=== PATIENT | female | born 1935 | race Caucasian/White ===

== ENCOUNTER 2017-01-31 15:55 | Outpatient (CLI) | payer BC ==
[~2017-01-31 15:55] MED LIST: IRBE1TAB11 PO; LIP10 PO
== END 2017-01-31 19:21 | disposition home or self-care (01) ==
LOC: SRD 15:55
PROVIDERS: ATTEND Internal Medicine
DX: R06.89 Other abnormalities of breathing (principal); I77.1 Stricture of artery
CPT/HCPCS: 71020-TC

== ENCOUNTER → 2017-02-24 | Outpatient (CLI) | payer BC | END | disposition home or self-care (01) | LOC: SCT 08:42 | PROVIDERS: ATTEND Internal Medicine | DX: I71.4 Abdominal aortic aneurysm, without rupture (principal) | CPT/HCPCS: 71250-TC ==

== ENCOUNTER 2017-07-04 10:34 | Outpatient (CLI) | payer BC | END 2017-07-04 19:31 | disposition home or self-care (01) | LOC: SMA 10:34 | PROVIDERS: ATTEND Internal Medicine | DX: Z12.31 Encounter for screening mammogram for malignant neoplasm of breast (principal) | CPT/HCPCS: G0202 ==

== ENCOUNTER 2020-07-18 18:40 | Inpatient (IN) | payer BC, SELFPAY ==
[~2020-07-18] VITALS: Ht 160 cm; Wt 44.0 kg
[2020-07-18] VITALS (7 sets, daily range): BP systolic 114–187
[~2020-07-18 18:40] MED LIST changes: +ETOMIDATE 20 MG/ 10 ML VIAL (AMIDATE) IVP ONE; +SUCCINYLCHOLINE CHLORIDE 20 MG/ML(QUELICIN) IVP ONE
[2020-07-18] MEDS ORDERED: NACL 0.9% 1,000 ML IV ONE ×2 (19:00→20:30)
[2020-07-18 19:10] LABS: BASOPHILS % (AUTO) 0.6 % (0.0-2.0); EOSINOPHILS # (AUTO) 0.1 K/uL (0.0-0.4); EOSINOPHILS % (AUTO) 0.9 % (0.0-4.0); HEMATOCRIT 34.9 % (36-48); HEMOGLOBIN 11.8 g/dL (12.0-16.0); LYMPHOCYTES # (AUTO) 1.5 K/uL (1.0-5.5); LYMPHOCYTES % (AUTO) 19.4 % (20.5-51.5); MEAN CORPUSCULAR HEMOGLOBIN 32 pg (27-31); MEAN CORPUSCULAR HGB CONC 34 % (32-36); MEAN CORPUSCULAR VOLUME 93 fL (79.0-98.0); MONOCYTES # (AUTO) 0.7 K/uL (0.0-1.0); MONOCYTES % (AUTO) 8.9 % (1.7-9.3); NEUTROPHILS # (AUTO) 5.4 K/uL (1.8-7.7); NEUTROPHILS % (AUTO) 70.2 % (40.0-70.0); PLATELET COUNT (AUTO) 336 K/uL (130-430); RED BLOOD CELL COUNT(AUTO) 3.75 MIL/uL (4.2-6.2); RED CELL DISTRIBUTION WIDTH 12.6 % (9.0-15.0); WHITE BLOOD COUNT (AUTO) 7.7 K/uL (4.8-10.8)
[2020-07-18 19:13] LABS: ANION GAP 10 (5-15); CALCIUM 8.2 mg/dL (8.4-11.0); CHLORIDE 102 mmol/L (98-107); CREATININE 0.49 mg/dL (0.55-1.30); GLUCOSE 103 mg/dL (70-99); POTASSIUM 3.7 mmol/L (3.5-5.1); SODIUM SERUM 136 mmol/L (136-145); UREA NITROGEN, BLOOD 14 mg/dL (8-21)
[2020-07-18] MEDS ORDERED: ETOMIDATE 20 MG/ 10 ML VIAL (AMIDATE) IVP ONE (19:15)
[2020-07-18] MEDS ORDERED: PROPOFOL DRIP 100 ML IV ONE (19:15)
[2020-07-18 19:19] LABS: ALANINE AMINOTRANSFERASE 22 U/L (12-78); ALBUMIN 3.5 g/dL (3.4-4.8); ASPARTATE AMINOTRANSFERASE 17 U/L (10-37); TOTAL BILIRUBIN 0.6 mg/dL (0.0-1.0)
[2020-07-18 19:19] LABS: BILIRUBIN,URINE NEGATIVE (NEGATIVE); BLOOD, URINE 1+ (NEGATIVE); CLARITY/URINE SL CLOUDY (CLEAR); COLOR,URINE YELLOW (YELLOW); GLUCOSE,URINE NEGATIVE (NEGATIVE); KETONES,URINE 1+ (NEGATIVE); LEUKOCYTE ESTERASE ,URINE NEGATIVE (NEGATIVE); NITRITE, URINE NEGATIVE (NEGATIVE); PROTEIN URINE NEGATIVE (NEGATIVE); UROBILINOGEN,URINE 0.2 (0.2-1.0)
[2020-07-18 19:29] LABS: BACTERIA,URINE FEW /HPF (None Seen); WBC,URINE 0-3 /HPF (0-3)
[2020-07-18 19:30] LABS: MUCUS,URINE None Seen /LPF (None Seen)
[2020-07-18] MEDS ORDERED: SUCCINYLCHOLINE CHLORIDE 20 MG/ML(QUELICIN) IVP ONE (19:30)
[2020-07-18] MEDS ORDERED: MIDAZOLAM HCL 5 MG/5 ML VIAL ONE (19:56)
[2020-07-18] MEDS ORDERED: LOSA100T3 PO (20:09)
[2020-07-18] MEDS ORDERED: AMLO5TAB4 PO (20:09)
[2020-07-18] MEDS ORDERED: cefTRIAXone 1 GM IVPB PREMIX 50 ML IV ONE (20:30)
[2020-07-18] MEDS ORDERED: CELE100C PO (20:45)
[2020-07-18] MEDS ORDERED: hydrALAZINE HCL 20 MG/ML VIAL IVP ONE (21:15)
[2020-07-18 21:17] LABS: ACETAMINOPHEN < 1 ug/mL (1-30); ALCOHOL, BLOOD < 3 mg/dL (<10)
[2020-07-18] MEDS ORDERED: IPRATROPIUM/ALBUTEROL SULFATE 3 ML AMPUL.NEB (DUONEB) INH PRN (21:45)
[2020-07-18] MEDS: D5LR 1,000 ML IV SCH (22:48)
[2020-07-18] MEDS: PANTOPRAZOLE SODIUM 40 MG/VIAL (PROTONIX) IVP SCH (22:48)
[2020-07-18] MEDS ORDERED: PANTOPRAZOLE SODIUM 40 MG/VIAL (PROTONIX) ONE (22:49)
[2020-07-18] MEDS ORDERED: PIPERACILLIN/TAZOBACTAM 3.375 GM/VIAL (ZOSYN) IV ONE (23:01)
[2020-07-18] MEDS: PIPERACILLIN/TAZO 3.375/DEX-IS 50 ML IV SCH (23:46)
[2020-07-19] VITALS (34 sets, daily range): BP systolic 80–163
[2020-07-19] MEDS ORDERED: FLU VACC QS2020-21(65UP)/PF 0.7 ML/SYRINGE I.M. PRN (05:30)
[2020-07-19] MEDS: PIPERACILLIN/TAZO 3.375/DEX-IS 50 ML IV SCH ×3 (06:23→18:41)
[2020-07-19 06:45] LABS: BASOPHILS # (AUTO) 0.1 K/uL (0.0-0.2); BASOPHILS % (AUTO) 0.8 % (0.0-2.0); EOSINOPHILS # (AUTO) 0.1 K/uL (0.0-0.4); EOSINOPHILS % (AUTO) 0.8 % (0.0-4.0); HEMATOCRIT 32.5 % (36-48); HEMOGLOBIN 11.3 g/dL (12.0-16.0); LYMPHOCYTES # (AUTO) 1.2 K/uL (1.0-5.5); LYMPHOCYTES % (AUTO) 12.8 % (20.5-51.5); MEAN CORPUSCULAR HEMOGLOBIN 33 pg (27-31); MEAN CORPUSCULAR HGB CONC 35 % (32-36); MEAN CORPUSCULAR VOLUME 94 fL (79.0-98.0); MONOCYTES # (AUTO) 0.8 K/uL (0.0-1.0); MONOCYTES % (AUTO) 7.9 % (1.7-9.3); NEUTROPHILS # (AUTO) 7.5 K/uL (1.8-7.7); NEUTROPHILS % (AUTO) 77.7 % (40.0-70.0); PLATELET COUNT (AUTO) 324 K/uL (130-430); RED BLOOD CELL COUNT(AUTO) 3.47 MIL/uL (4.2-6.2); RED CELL DISTRIBUTION WIDTH 12.9 % (9.0-15.0); WHITE BLOOD COUNT (AUTO) 9.6 K/uL (4.8-10.8)
[2020-07-19 07:15] LABS: ALANINE AMINOTRANSFERASE 20 U/L (12-78); ANION GAP 11 (5-15); ASPARTATE AMINOTRANSFERASE 22 U/L (10-37); CALCIUM 7.5 mg/dL (8.4-11.0); CHLORIDE 105 mmol/L (98-107); CREATININE 0.51 mg/dL (0.55-1.30); GLUCOSE 153 mg/dL (70-99); LIPASE 142 U/L (73-393); PHOSPHORUS 2.6 mg/dL (2.7-4.5); POTASSIUM 3.1 mmol/L (3.5-5.1); SODIUM SERUM 139 mmol/L (136-145); TOTAL BILIRUBIN 0.4 mg/dL (0.0-1.0); UREA NITROGEN, BLOOD 13 mg/dL (8-21)
[2020-07-19 07:30] LABS: PROTHROMBIN TIME 9.9 SECS (9.5-12.5)
[2020-07-19] MEDS: D5LR 1,000 ML IV SCH ×2 (08:59→18:41)
[2020-07-19] MEDS: PANTOPRAZOLE SODIUM 40 MG/VIAL (PROTONIX) IVP SCH ×2 (09:00→20:53)
[2020-07-19] MEDS ORDERED: PANTOPRAZOLE SODIUM 40 MG/VIAL (PROTONIX) IVP SCH (09:00)
[2020-07-19 11:40] LABS: BARBITURATE, URINE NEGATIVE (NEG <=200); BENZODIAZEPINE, URINE NEGATIVE (NEG <=150); CANNABINOID, URINE POSITIVE (NEG <=50); COCAINE, URINE NEGATIVE (NEG <=150); METHAMPHETAMINES SCREEN,URINE NEGATIVE (NEG <=500); OPIATE, URINE NEGATIVE (NEG <=100); PHENCYCLIDINE SCREEN,URINE NEGATIVE (NEG <=25); UR TRICYCLIC ANTIDEPRESSANTS NEGATIVE (NEG <=300); URINE AMPHETAMINE NEGATIVE (NEG <=500); URINE METHADONE NEGATIVE (NEG <=200); URINE OXYCODONE SCREEN NEGATIVE (NEG <=100); URINE PROPOXYPHENE SCREEN NEGATIVE (NEG <=300)
[2020-07-19] MEDS ORDERED: KCL 40 mEq in D5W 1000 mL 1,000 ML IV SCH (13:00)
[2020-07-19] MEDS: PROPOFOL DRIP 100 ML IV PRN (13:20)
[2020-07-19] MEDS ORDERED: POTASSIUM CHLORIDE 40 MEQ in NS 250 ML IV ONE (14:00)
[2020-07-19] MEDS ORDERED: POTASSIUM CHLORIDE 20 MEQ/PKT PACKET NG ONE (16:15)
[2020-07-19] MEDS ORDERED: NALOXONE HCL 0.4 MG/ML AMP (NARCAN) IVP PRN (19:15)
[2020-07-19] MEDS ORDERED: MIDAZOLAM HCL IN 0.9 % NACL/PF 50 ML IV PRN (19:15)
[2020-07-19] MEDS ORDERED: MORPHINE I.V. DRIP 100 ML IV PRN (19:15)
[2020-07-19] MEDS ORDERED: MORPHINE SULFATE 10 MG/ML VIAL ONE (19:52)
[2020-07-19] MEDS: HEPARIN SODIUM,PORCINE 5,000 UNITS/ML VIAL SUBCUT SCH (20:54)
[2020-07-19] MEDS: POTASSIUM CHLORIDE 20 MEQ/PKT PACKET NG SCH (20:54)
[2020-07-20] VITALS (36 sets, daily range): BP systolic 95–159
[2020-07-20] MEDS: PROPOFOL DRIP 100 ML IV PRN ×2 (00:09→17:26)
[2020-07-20] MEDS: PIPERACILLIN/TAZO 3.375/DEX-IS 50 ML IV SCH ×4 (00:10→17:25)
[2020-07-20] MEDS: D5LR 1,000 ML IV SCH ×2 (05:15→13:40)
[2020-07-20 06:37] LABS: BASOPHILS # (AUTO) 0.1 K/uL (0.0-0.2); BASOPHILS % (AUTO) 1.3 % (0.0-2.0); EOSINOPHILS # (AUTO) 0.3 K/uL (0.0-0.4); EOSINOPHILS % (AUTO) 3.2 % (0.0-4.0); HEMATOCRIT 28.3 % (36-48); HEMOGLOBIN 9.5 g/dL (12.0-16.0); LYMPHOCYTES # (AUTO) 1.7 K/uL (1.0-5.5); LYMPHOCYTES % (AUTO) 21.9 % (20.5-51.5); MEAN CORPUSCULAR HEMOGLOBIN 32 pg (27-31); MEAN CORPUSCULAR HGB CONC 34 % (32-36); MEAN CORPUSCULAR VOLUME 95 fL (79.0-98.0); MONOCYTES # (AUTO) 0.7 K/uL (0.0-1.0); MONOCYTES % (AUTO) 8.7 % (1.7-9.3); NEUTROPHILS # (AUTO) 5.2 K/uL (1.8-7.7); NEUTROPHILS % (AUTO) 64.9 % (40.0-70.0); PLATELET COUNT (AUTO) 237 K/uL (130-430); RED BLOOD CELL COUNT(AUTO) 2.99 MIL/uL (4.2-6.2); RED CELL DISTRIBUTION WIDTH 12.8 % (9.0-15.0)
[2020-07-20] MEDS ORDERED: PHENYLEPHRINE HCL 50 MG in NS 245 ML IV PRN (06:45)
[2020-07-20] MEDS ORDERED: NACL 0.9% 1,000 ML IV ONE (06:45)
[2020-07-20 07:14] LABS: ALANINE AMINOTRANSFERASE 18 U/L (12-78); ALBUMIN 2.4 g/dL (3.4-4.8); ANION GAP 5 (5-15); ASPARTATE AMINOTRANSFERASE 21 U/L (10-37); CALCIUM 7.3 mg/dL (8.4-11.0); CHLORIDE 112 mmol/L (98-107); CREATININE 0.43 mg/dL (0.55-1.30); GLUCOSE 128 mg/dL (70-99); POTASSIUM 3.7 mmol/L (3.5-5.1); SODIUM SERUM 143 mmol/L (136-145); THYROID STIMULATING HORMONE 1.06 uIu/mL (0.36-3.74); TOTAL BILIRUBIN 0.3 mg/dL (0.0-1.0); UREA NITROGEN, BLOOD 11 mg/dL (8-21)
[2020-07-20] MEDS: PANTOPRAZOLE SODIUM 40 MG/VIAL (PROTONIX) IVP SCH ×2 (08:17→20:41)
[2020-07-20] MEDS: POTASSIUM CHLORIDE 20 MEQ/PKT PACKET NG SCH ×2 (08:18→20:44)
[2020-07-20] MEDS: HEPARIN SODIUM,PORCINE 5,000 UNITS/ML VIAL SUBCUT SCH ×2 (08:19→20:50)
[2020-07-20 08:27] LABS: CHOLESTEROL 174 mg/dL (<200); HDL CHOLESTEROL 59 mg/dL (>55); LDL CHOLESTEROL 94 mg/dL (<100); TRIGLYCERIDES 109 mg/dL (30-150)
[2020-07-20] MEDS ORDERED: NAPH,MB-DB/K PH,MBDB 250 MG TAB NG ONE (19:45)
[2020-07-20] MEDS: CHOLECALCIFEROL (VITAMIN D3) 2,000 UNIT TABLET PO SCH (20:47)
[2020-07-20] MEDS ORDERED: CHOLECALCIFEROL (VITAMIN D-3) 400 UNIT TABLET ONE (20:56)
[2020-07-20] MEDS ORDERED: NAPH,MB-DB/K PH,MBDB 250 MG TAB PO SCH (21:00)
[2020-07-21] VITALS (27 sets, daily range): BP systolic 119–202
[2020-07-21] MEDS: PIPERACILLIN/TAZO 3.375/DEX-IS 50 ML IV SCH ×4 (00:30→18:01)
[2020-07-21] MEDS: hydrALAZINE HCL 20 MG/ML VIAL IVP PRN ×3 (02:07→15:47)
[2020-07-21] MEDS: D5LR 1,000 ML IV SCH ×2 (05:32→22:47)
[2020-07-21 06:05] LABS: BASOPHILS # (AUTO) 0.1 K/uL (0.0-0.2); BASOPHILS % (AUTO) 0.9 % (0.0-2.0); EOSINOPHILS # (AUTO) 0.3 K/uL (0.0-0.4); EOSINOPHILS % (AUTO) 2.9 % (0.0-4.0); HEMATOCRIT 32.1 % (36-48); HEMOGLOBIN 10.6 g/dL (12.0-16.0); LYMPHOCYTES % (AUTO) 18.2 % (20.5-51.5); MEAN CORPUSCULAR HEMOGLOBIN 31 pg (27-31); MEAN CORPUSCULAR HGB CONC 33 % (32-36); MEAN CORPUSCULAR VOLUME 94 fL (79.0-98.0); MONOCYTES # (AUTO) 0.9 K/uL (0.0-1.0); MONOCYTES % (AUTO) 8.7 % (1.7-9.3); NEUTROPHILS # (AUTO) 7.5 K/uL (1.8-7.7); NEUTROPHILS % (AUTO) 69.3 % (40.0-70.0); PLATELET COUNT (AUTO) 270 K/uL (130-430); RED CELL DISTRIBUTION WIDTH 12.8 % (9.0-15.0); WHITE BLOOD COUNT (AUTO) 10.8 K/uL (4.8-10.8)
[2020-07-21 06:42] LABS: ANION GAP 4 (5-15); CALCIUM 8.1 mg/dL (8.4-11.0); CHLORIDE 103 mmol/L (98-107); CREATININE 0.45 mg/dL (0.55-1.30); GLUCOSE 132 mg/dL (70-99); PHOSPHORUS 2.7 mg/dL (2.7-4.5); POTASSIUM 3.7 mmol/L (3.5-5.1); SODIUM SERUM 134 mmol/L (136-145); UREA NITROGEN, BLOOD 9 mg/dL (8-21)
[2020-07-21] MEDS: NAPH,MB-DB/K PH,MBDB 250 MG TAB PO SCH ×4 (09:14→21:46)
[2020-07-21] MEDS: MULTIVITS,CA,MINERALS/IRON/FA 1 TABLET GT SCH (09:14)
[2020-07-21] MEDS: POTASSIUM CHLORIDE 20 MEQ/PKT PACKET NG SCH ×2 (09:14→21:46)
[2020-07-21] MEDS: CHOLECALCIFEROL (VITAMIN D3) 2,000 UNIT TABLET PO SCH (09:14)
[2020-07-21] MEDS: PANTOPRAZOLE SODIUM 40 MG/VIAL (PROTONIX) IVP SCH ×2 (09:14→21:46)
[2020-07-21] MEDS: HEPARIN SODIUM,PORCINE 5,000 UNITS/ML VIAL SUBCUT SCH ×2 (09:16→21:48)
[2020-07-21] MEDS ORDERED: DILTIAZEM HCL 25 MG/5 ML VIAL IVP ONE (12:00)
[2020-07-21] MEDS ORDERED: METOPROLOL TARTRATE 5 MG/5 ML VIAL IVP ONE (13:00)
[2020-07-21] MEDS ORDERED: METOPROLOL TARTRATE 25 MG TABLET PO ONE (17:15)
[2020-07-21] MEDS: METOPROLOL TARTRATE 25 MG TABLET PO SCH (21:47)
[2020-07-22] VITALS (20 sets, daily range): BP systolic 136–172
[2020-07-22] MEDS: PIPERACILLIN/TAZO 3.375/DEX-IS 50 ML IV SCH ×4 (00:16→17:49)
[2020-07-22] MEDS: hydrALAZINE HCL 20 MG/ML VIAL IVP PRN (00:35)
[2020-07-22 05:26] LABS: BASOPHILS # (AUTO) 0.1 K/uL (0.0-0.2); LYMPHOCYTES # (AUTO) 1.3 K/uL (1.0-5.5); RED CELL DISTRIBUTION WIDTH 12.7 % (9.0-15.0)
[2020-07-22 05:33] LABS: INR 0.9 (0.8-1.2); PROTHROMBIN TIME 9.6 SECS (9.5-12.5)
[2020-07-22 05:39] LABS: ALANINE AMINOTRANSFERASE 19 U/L (12-78); ALBUMIN 2.8 g/dL (3.4-4.8); ANION GAP 9 (5-15); ASPARTATE AMINOTRANSFERASE 20 U/L (10-37); CALCIUM 8.5 mg/dL (8.4-11.0); CHLORIDE 96 mmol/L (98-107); GLUCOSE 119 mg/dL (70-99); POTASSIUM 3.2 mmol/L (3.5-5.1); SODIUM SERUM 132 mmol/L (136-145); TOTAL BILIRUBIN 0.6 mg/dL (0.0-1.0); UREA NITROGEN, BLOOD 7 mg/dL (8-21)
[2020-07-22 05:41] LABS: BASOPHILS % (AUTO) 0.7 % (0.0-2.0); EOSINOPHILS # (AUTO) 0.1 K/uL (0.0-0.4); EOSINOPHILS % (AUTO) 0.6 % (0.0-4.0); HEMATOCRIT 34.7 % (36-48); HEMOGLOBIN 11.5 g/dL (12.0-16.0); LYMPHOCYTES % (AUTO) 9.9 % (20.5-51.5); MEAN CORPUSCULAR HEMOGLOBIN 31 pg (27-31); MEAN CORPUSCULAR HGB CONC 33 % (32-36); MEAN CORPUSCULAR VOLUME 94 fL (79.0-98.0); MONOCYTES # (AUTO) 0.9 K/uL (0.0-1.0); MONOCYTES % (AUTO) 6.3 % (1.7-9.3); NEUTROPHILS # (AUTO) 11.2 K/uL (1.8-7.7); NEUTROPHILS % (AUTO) 82.5 % (40.0-70.0); PLATELET COUNT (AUTO) 295 K/uL (130-430); WHITE BLOOD COUNT (AUTO) 13.5 K/uL (4.8-10.8)
[2020-07-22] MEDS ORDERED: POTASSIUM CHLORIDE 20 MEQ/PKT PACKET PO ONE (08:00)
[2020-07-22] MEDS: PANTOPRAZOLE SODIUM 40 MG/VIAL (PROTONIX) IVP SCH ×2 (08:36→20:59)
[2020-07-22] MEDS: HEPARIN SODIUM,PORCINE 5,000 UNITS/ML VIAL SUBCUT SCH ×2 (08:38→21:04)
[2020-07-22] MEDS: MULTIVITS,CA,MINERALS/IRON/FA 1 TABLET GT SCH (08:38)
[2020-07-22] MEDS: NAPH,MB-DB/K PH,MBDB 250 MG TAB PO SCH ×4 (08:38→21:00)
[2020-07-22] MEDS: METOPROLOL TARTRATE 25 MG TABLET PO SCH (08:39)
[2020-07-22] MEDS: POTASSIUM CHLORIDE 20 MEQ/PKT PACKET NG SCH ×2 (08:39→21:00)
[2020-07-22] MEDS: CHOLECALCIFEROL (VITAMIN D3) 2,000 UNIT TABLET PO SCH (08:40)
[2020-07-22] MEDS: D5LR 1,000 ML IV SCH (12:20)
[2020-07-22] MEDS: METOPROLOL TARTRATE 50 MG TABLET PO SCH (21:00)
[2020-07-23] VITALS: BP_SYST 165
[2020-07-23] MEDS: PIPERACILLIN/TAZO 3.375/DEX-IS 50 ML IV SCH ×3 (00:08→12:26)
[2020-07-23 00:30] VITALS: BP_SYST 155
[2020-07-23] MEDS: D5LR 1,000 ML IV SCH (03:21)
[2020-07-23 06:12] LABS: BASOPHILS # (AUTO) 0.1 K/uL (0.0-0.2); BASOPHILS % (AUTO) 0.5 % (0.0-2.0); EOSINOPHILS # (AUTO) 0.2 K/uL (0.0-0.4); EOSINOPHILS % (AUTO) 1.7 % (0.0-4.0); HEMATOCRIT 35.4 % (36-48); LYMPHOCYTES # (AUTO) 1.3 K/uL (1.0-5.5); LYMPHOCYTES % (AUTO) 13.7 % (20.5-51.5); MEAN CORPUSCULAR HEMOGLOBIN 31 pg (27-31); MEAN CORPUSCULAR HGB CONC 34 % (32-36); MEAN CORPUSCULAR VOLUME 93 fL (79.0-98.0); MONOCYTES # (AUTO) 0.8 K/uL (0.0-1.0); MONOCYTES % (AUTO) 8.4 % (1.7-9.3); NEUTROPHILS # (AUTO) 7.1 K/uL (1.8-7.7); NEUTROPHILS % (AUTO) 75.7 % (40.0-70.0); PLATELET COUNT (AUTO) 300 K/uL (130-430); RED BLOOD CELL COUNT(AUTO) 3.83 MIL/uL (4.2-6.2); RED CELL DISTRIBUTION WIDTH 12.3 % (9.0-15.0); WHITE BLOOD COUNT (AUTO) 9.3 K/uL (4.8-10.8)
[2020-07-23 06:59] LABS: ANION GAP 5 (5-15); CALCIUM 8.5 mg/dL (8.4-11.0); CHLORIDE 95 mmol/L (98-107); CREATININE 0.38 mg/dL (0.55-1.30); GLUCOSE 157 mg/dL (70-99); POTASSIUM 3.2 mmol/L (3.5-5.1); SODIUM SERUM 127 mmol/L (136-145); UREA NITROGEN, BLOOD 9 mg/dL (8-21)
[2020-07-23 08:10] VITALS: BP_SYST 135
[2020-07-23] MEDS: PANTOPRAZOLE SODIUM 40 MG/VIAL (PROTONIX) IVP SCH (08:48)
[2020-07-23] MEDS: POTASSIUM CHLORIDE 20 MEQ/PKT PACKET NG SCH ×2 (08:48→20:51)
[2020-07-23] MEDS: MULTIVITS,CA,MINERALS/IRON/FA 1 TABLET GT SCH (08:48)
[2020-07-23] MEDS: METOPROLOL TARTRATE 50 MG TABLET PO SCH ×2 (08:49→20:51)
[2020-07-23] MEDS: CHOLECALCIFEROL (VITAMIN D3) 2,000 UNIT TABLET PO SCH (08:49)
[2020-07-23] MEDS: HEPARIN SODIUM,PORCINE 5,000 UNITS/ML VIAL SUBCUT SCH ×2 (08:51→20:52)
[2020-07-23] MEDS: NAPH,MB-DB/K PH,MBDB 250 MG TAB PO SCH ×4 (09:43→20:51)
[2020-07-23 12:09] VITALS: BP_SYST 132
[2020-07-23] MEDS ORDERED: POTASSIUM CHLORIDE 20 MEQ TAB.PRT.SR PO ONE (14:00)
[2020-07-23 16:13] VITALS: BP_SYST 135
[2020-07-23 20:00] VITALS: BP_SYST 119
[2020-07-24 00:16] VITALS: BP_SYST 120
[2020-07-24 06:21] LABS: BASOPHILS # (AUTO) 0.1 K/uL (0.0-0.2); EOSINOPHILS # (AUTO) 0.1 K/uL (0.0-0.4); EOSINOPHILS % (AUTO) 1.5 % (0.0-4.0); HEMATOCRIT 35.2 % (36-48); HEMOGLOBIN 11.9 g/dL (12.0-16.0); LYMPHOCYTES # (AUTO) 1.7 K/uL (1.0-5.5); LYMPHOCYTES % (AUTO) 17.4 % (20.5-51.5); MEAN CORPUSCULAR HEMOGLOBIN 32 pg (27-31); MEAN CORPUSCULAR HGB CONC 34 % (32-36); MEAN CORPUSCULAR VOLUME 93 fL (79.0-98.0); MONOCYTES # (AUTO) 0.7 K/uL (0.0-1.0); MONOCYTES % (AUTO) 7.6 % (1.7-9.3); NEUTROPHILS # (AUTO) 7.1 K/uL (1.8-7.7); NEUTROPHILS % (AUTO) 72.5 % (40.0-70.0); PLATELET COUNT (AUTO) 308 K/uL (130-430); RED BLOOD CELL COUNT(AUTO) 3.79 MIL/uL (4.2-6.2); RED CELL DISTRIBUTION WIDTH 12.6 % (9.0-15.0); WHITE BLOOD COUNT (AUTO) 9.7 K/uL (4.8-10.8)
[2020-07-24 06:52] LABS: ALANINE AMINOTRANSFERASE 47 U/L (12-78); ALBUMIN 2.9 g/dL (3.4-4.8); ANION GAP 6 (5-15); ASPARTATE AMINOTRANSFERASE 36 U/L (10-37); CALCIUM 8.4 mg/dL (8.4-11.0); CHLORIDE 101 mmol/L (98-107); CREATININE 0.54 mg/dL (0.55-1.30); GLUCOSE 144 mg/dL (70-99); PHOSPHORUS 2.9 mg/dL (2.7-4.5); POTASSIUM 4.2 mmol/L (3.5-5.1); SODIUM SERUM 135 mmol/L (136-145); TOTAL BILIRUBIN 0.3 mg/dL (0.0-1.0); UREA NITROGEN, BLOOD 29 mg/dL (8-21)
[2020-07-24 08:00] VITALS: BP_SYST 130
[2020-07-24] MEDS: CHOLECALCIFEROL (VITAMIN D3) 2,000 UNIT TABLET PO SCH (08:33)
[2020-07-24] MEDS: MULTIVITS,CA,MINERALS/IRON/FA 1 TABLET GT SCH (08:33)
[2020-07-24] MEDS: NAPH,MB-DB/K PH,MBDB 250 MG TAB PO SCH ×4 (08:33→21:05)
[2020-07-24] MEDS: PANTOPRAZOLE SODIUM 40 MG TAB PO SCH (08:34)
[2020-07-24] MEDS: POTASSIUM CHLORIDE 20 MEQ/PKT PACKET NG SCH ×2 (08:34→21:06)
[2020-07-24] MEDS: METOPROLOL TARTRATE 50 MG TABLET PO SCH ×2 (08:34→21:06)
[2020-07-24] MEDS: HEPARIN SODIUM,PORCINE 5,000 UNITS/ML VIAL SUBCUT SCH ×2 (08:35→21:08)
[2020-07-24 11:35] VITALS: BP_SYST 130
[2020-07-24 12:13] VITALS: BP_SYST 156
[2020-07-24 16:30] VITALS: BP_SYST 140
[2020-07-24 20:15] VITALS: BP_SYST 147
[2020-07-25] VITALS: BP_SYST 151
[2020-07-25] MEDS: POTASSIUM CHLORIDE 20 MEQ/PKT PACKET NG SCH (08:36)
[2020-07-25] MEDS: CHOLECALCIFEROL (VITAMIN D3) 2,000 UNIT TABLET PO SCH (08:36)
[2020-07-25] MEDS: PANTOPRAZOLE SODIUM 40 MG TAB PO SCH (08:36)
[2020-07-25] MEDS: NAPH,MB-DB/K PH,MBDB 250 MG TAB PO SCH ×4 (08:36→20:50)
[2020-07-25] MEDS: MULTIVITS,CA,MINERALS/IRON/FA 1 TABLET GT SCH (08:36)
[2020-07-25] MEDS: METOPROLOL TARTRATE 50 MG TABLET PO SCH ×2 (08:37→20:54)
[2020-07-25 08:40] VITALS: BP_SYST 143
[2020-07-25] MEDS: HEPARIN SODIUM,PORCINE 5,000 UNITS/ML VIAL SUBCUT SCH (08:40)
[2020-07-25 12:00] VITALS: BP_SYST 159
[2020-07-25 16:00] VITALS: BP_SYST 158; BP_SYST 168
[2020-07-25] MEDS ORDERED: cloNIDine HCL 0.1 MG TABLET PO PRN (18:00)
[2020-07-25] MEDS ORDERED: cloNIDine HCL 0.1 MG TABLET ONE (18:33)
[2020-07-25] MEDS: CARVEDILOL 6.25 MG TABLET (COREG) PO SCH (20:53)
[2020-07-26 01:29] VITALS: BP_SYST 131
[2020-07-26 07:56] VITALS: BP_SYST 163
[2020-07-26] MEDS: NAPH,MB-DB/K PH,MBDB 250 MG TAB PO SCH ×4 (08:57→20:20)
[2020-07-26] MEDS: CHOLECALCIFEROL (VITAMIN D3) 2,000 UNIT TABLET PO SCH (08:58)
[2020-07-26] MEDS: MULTIVITS,CA,MINERALS/IRON/FA 1 TABLET GT SCH (08:58)
[2020-07-26] MEDS: CARVEDILOL 6.25 MG TABLET (COREG) PO SCH ×2 (08:58→20:22)
[2020-07-26] MEDS: PANTOPRAZOLE SODIUM 40 MG TAB PO SCH (08:58)
[2020-07-26] MEDS: METOPROLOL TARTRATE 50 MG TABLET PO SCH ×2 (08:59→20:20)
[2020-07-26 12:10] VITALS: BP_SYST 151
[2020-07-26 16:12] VITALS: BP_SYST 121
[2020-07-26 20:00] VITALS: BP_SYST 130
[2020-07-26] MEDS ORDERED: AMLO5TAB4 PO (21:25)
[2020-07-26] MEDS ORDERED: METO-442 PO (21:25)
[2020-07-26] MEDS ORDERED: PRO40 PO (21:25)
[2020-07-26] MEDS ORDERED: MULT-33 GT (21:25)
[2020-07-27 01:07] VITALS: BP_SYST 131
[2020-07-27 06:45] LABS: BASOPHILS # (AUTO) 0.1 K/uL (0.0-0.2); BASOPHILS % (AUTO) 0.4 % (0.0-2.0); EOSINOPHILS # (AUTO) 0.3 K/uL (0.0-0.4); EOSINOPHILS % (AUTO) 2.4 % (0.0-4.0); HEMATOCRIT 32.1 % (36-48); HEMOGLOBIN 10.6 g/dL (12.0-16.0); LYMPHOCYTES % (AUTO) 8.3 % (20.5-51.5); MEAN CORPUSCULAR HEMOGLOBIN 31 pg (27-31); MEAN CORPUSCULAR HGB CONC 33 % (32-36); MEAN CORPUSCULAR VOLUME 94 fL (79.0-98.0); MONOCYTES # (AUTO) 1.1 K/uL (0.0-1.0); MONOCYTES % (AUTO) 9.1 % (1.7-9.3); NEUTROPHILS % (AUTO) 79.8 % (40.0-70.0); PLATELET COUNT (AUTO) 210 K/uL (130-430); RED BLOOD CELL COUNT(AUTO) 3.42 MIL/uL (4.2-6.2); RED CELL DISTRIBUTION WIDTH 12.7 % (9.0-15.0); WHITE BLOOD COUNT (AUTO) 12.5 K/uL (4.8-10.8)
[2020-07-27 07:12] LABS: ALANINE AMINOTRANSFERASE 49 U/L (12-78); ALBUMIN 2.9 g/dL (3.4-4.8); ANION GAP 5 (5-15); ASPARTATE AMINOTRANSFERASE 23 U/L (10-37); CALCIUM 9.1 mg/dL (8.4-11.0); CHLORIDE 100 mmol/L (98-107); CREATININE 0.77 mg/dL (0.55-1.30); GLUCOSE 141 mg/dL (70-99); PHOSPHORUS 5.8 mg/dL (2.7-4.5); POTASSIUM 3.7 mmol/L (3.5-5.1); SODIUM SERUM 136 mmol/L (136-145); TOTAL BILIRUBIN 0.2 mg/dL (0.0-1.0); UREA NITROGEN, BLOOD 48 mg/dL (8-21)
[2020-07-27] MEDS: METOPROLOL TARTRATE 50 MG TABLET PO SCH ×2 (08:49→20:34)
[2020-07-27] MEDS: amLODIPine BESYLATE 5 MG TABLET PO SCH (08:49)
[2020-07-27] MEDS: PANTOPRAZOLE SODIUM 40 MG TAB PO SCH (08:49)
[2020-07-27] MEDS: CHOLECALCIFEROL (VITAMIN D3) 2,000 UNIT TABLET PO SCH (08:50)
[2020-07-27] MEDS: MULTIVITS,CA,MINERALS/IRON/FA 1 TABLET GT SCH (08:50)
[2020-07-27 11:18] VITALS: BP_SYST 171
[2020-07-27 12:05] VITALS: BP_SYST 129
[2020-07-27] MEDS ORDERED: LR 500 ML IV ONE (15:45)
[2020-07-27] MEDS ORDERED: MEGESTROL ACETATE 400 MG/10 ML UDC PO ONE (16:00)
[2020-07-27 16:03] VITALS: BP_SYST 141
[2020-07-27 20:00] VITALS: BP_SYST 134
[2020-07-28 00:54] VITALS: BP_SYST 130
[2020-07-28 06:36] LABS: BASOPHILS % (AUTO) 0.3 % (0.0-2.0); EOSINOPHILS # (AUTO) 0.3 K/uL (0.0-0.4); EOSINOPHILS % (AUTO) 2.4 % (0.0-4.0); HEMATOCRIT 32.9 % (36-48); HEMOGLOBIN 10.9 g/dL (12.0-16.0); LYMPHOCYTES # (AUTO) 1.6 K/uL (1.0-5.5); LYMPHOCYTES % (AUTO) 12.6 % (20.5-51.5); MEAN CORPUSCULAR HEMOGLOBIN 31 pg (27-31); MEAN CORPUSCULAR HGB CONC 33 % (32-36); MEAN CORPUSCULAR VOLUME 93 fL (79.0-98.0); MONOCYTES # (AUTO) 1.1 K/uL (0.0-1.0); MONOCYTES % (AUTO) 8.4 % (1.7-9.3); NEUTROPHILS # (AUTO) 9.8 K/uL (1.8-7.7); NEUTROPHILS % (AUTO) 76.3 % (40.0-70.0); PLATELET COUNT (AUTO) 180 K/uL (130-430); RED BLOOD CELL COUNT(AUTO) 3.53 MIL/uL (4.2-6.2); RED CELL DISTRIBUTION WIDTH 12.7 % (9.0-15.0); WHITE BLOOD COUNT (AUTO) 12.8 K/uL (4.8-10.8)
[2020-07-28 06:41] LABS: ANION GAP 7 (5-15); CALCIUM 9.1 mg/dL (8.4-11.0); CHLORIDE 97 mmol/L (98-107); CREATININE 0.72 mg/dL (0.55-1.30); GLUCOSE 137 mg/dL (70-99); POTASSIUM 3.5 mmol/L (3.5-5.1); SODIUM SERUM 135 mmol/L (136-145); UREA NITROGEN, BLOOD 48 mg/dL (8-21)
[2020-07-28 08:00] VITALS: BP_SYST 135
[2020-07-28] MEDS ORDERED: LR 500 ML IV ONE (09:15)
[2020-07-28] MEDS: MEGESTROL ACETATE 400 MG/10 ML UDC PO SCH (09:28)
[2020-07-28] MEDS: CHOLECALCIFEROL (VITAMIN D3) 2,000 UNIT TABLET PO SCH (09:32)
[2020-07-28] MEDS: amLODIPine BESYLATE 5 MG TABLET PO SCH (09:32)
[2020-07-28] MEDS: METOPROLOL TARTRATE 50 MG TABLET PO SCH ×2 (09:32→20:07)
[2020-07-28] MEDS: MULTIVITS,CA,MINERALS/IRON/FA 1 TABLET GT SCH (09:32)
[2020-07-28] MEDS: PANTOPRAZOLE SODIUM 40 MG TAB PO SCH (09:32)
[2020-07-28 11:52] VITALS: BP_SYST 118
[2020-07-28 15:58] VITALS: BP_SYST 136
[2020-07-28 20:00] VITALS: BP_SYST 133
[2020-07-28] MEDS: LR 1,000 ML IV SCH (20:15)
[2020-07-29 00:03] VITALS: BP_SYST 124
[2020-07-29] MEDS: LR 1,000 ML IV SCH ×3 (05:02→20:31)
[2020-07-29 07:30] LABS: BASOPHILS # (AUTO) 0.1 K/uL (0.0-0.2); BASOPHILS % (AUTO) 0.5 % (0.0-2.0); EOSINOPHILS # (AUTO) 0.3 K/uL (0.0-0.4); EOSINOPHILS % (AUTO) 2.5 % (0.0-4.0); HEMATOCRIT 32.5 % (36-48); HEMOGLOBIN 10.9 g/dL (12.0-16.0); LYMPHOCYTES # (AUTO) 1.7 K/uL (1.0-5.5); LYMPHOCYTES % (AUTO) 14.2 % (20.5-51.5); MEAN CORPUSCULAR HEMOGLOBIN 31 pg (27-31); MEAN CORPUSCULAR HGB CONC 34 % (32-36); MEAN CORPUSCULAR VOLUME 93 fL (79.0-98.0); MONOCYTES % (AUTO) 8.4 % (1.7-9.3); NEUTROPHILS # (AUTO) 8.8 K/uL (1.8-7.7); NEUTROPHILS % (AUTO) 74.4 % (40.0-70.0); PLATELET COUNT (AUTO) 182 K/uL (130-430); RED BLOOD CELL COUNT(AUTO) 3.51 MIL/uL (4.2-6.2); RED CELL DISTRIBUTION WIDTH 12.4 % (9.0-15.0); WHITE BLOOD COUNT (AUTO) 11.9 K/uL (4.8-10.8)
[2020-07-29 07:32] LABS: ANION GAP 7 (5-15); CALCIUM 8.9 mg/dL (8.4-11.0); CHLORIDE 97 mmol/L (98-107); CREATININE 0.49 mg/dL (0.55-1.30); GLUCOSE 157 mg/dL (70-99); POTASSIUM 3.1 mmol/L (3.5-5.1); SODIUM SERUM 134 mmol/L (136-145); UREA NITROGEN, BLOOD 30 mg/dL (8-21)
[2020-07-29] MEDS: amLODIPine BESYLATE 5 MG TABLET PO SCH (09:31)
[2020-07-29] MEDS: METOPROLOL TARTRATE 50 MG TABLET PO SCH ×2 (09:32→20:27)
[2020-07-29] MEDS: PANTOPRAZOLE SODIUM 40 MG TAB PO SCH (09:32)
[2020-07-29] MEDS: MULTIVITS,CA,MINERALS/IRON/FA 1 TABLET GT SCH (09:32)
[2020-07-29] MEDS: CHOLECALCIFEROL (VITAMIN D3) 2,000 UNIT TABLET PO SCH (09:33)
[2020-07-29] MEDS: MEGESTROL ACETATE 400 MG/10 ML UDC PO SCH (09:33)
[2020-07-29] MEDS ORDERED: POTASSIUM CHLORIDE 20 MEQ TAB.PRT.SR PO ONE (11:15)
[2020-07-29 11:52] VITALS: BP_SYST 145
[2020-07-29 12:00] VITALS: BP_SYST 149
[2020-07-29] MEDS ORDERED: MEGE400O4 PO (12:55)
[2020-07-29] MEDS ORDERED: POTA20TA83 PO (12:55)
[2020-07-29 16:00] VITALS: BP_SYST 133
[2020-07-29 20:00] VITALS: BP_SYST 138
[2020-07-30] VITALS (7 sets, daily range): BP systolic 104–157
[2020-07-30 06:36] LABS: BASOPHILS # (AUTO) 0.1 K/uL (0.0-0.2); BASOPHILS % (AUTO) 0.5 % (0.0-2.0); EOSINOPHILS # (AUTO) 0.2 K/uL (0.0-0.4); EOSINOPHILS % (AUTO) 1.5 % (0.0-4.0); HEMOGLOBIN 11.1 g/dL (12.0-16.0); LYMPHOCYTES # (AUTO) 1.2 K/uL (1.0-5.5); LYMPHOCYTES % (AUTO) 8.9 % (20.5-51.5); MEAN CORPUSCULAR HEMOGLOBIN 32 pg (27-31); MEAN CORPUSCULAR HGB CONC 34 % (32-36); MEAN CORPUSCULAR VOLUME 94 fL (79.0-98.0); MONOCYTES % (AUTO) 7.5 % (1.7-9.3); NEUTROPHILS # (AUTO) 10.6 K/uL (1.8-7.7); NEUTROPHILS % (AUTO) 81.6 % (40.0-70.0); PLATELET COUNT (AUTO) 161 K/uL (130-430); RED BLOOD CELL COUNT(AUTO) 3.51 MIL/uL (4.2-6.2); RED CELL DISTRIBUTION WIDTH 12.8 % (9.0-15.0)
[2020-07-30 06:50] LABS: ANION GAP 6 (5-15); CALCIUM 8.8 mg/dL (8.4-11.0); CHLORIDE 103 mmol/L (98-107); CREATININE 0.82 mg/dL (0.55-1.30); GLUCOSE 146 mg/dL (70-99); SODIUM SERUM 139 mmol/L (136-145); UREA NITROGEN, BLOOD 30 mg/dL (8-21)
[2020-07-30] MEDS: MEGESTROL ACETATE 400 MG/10 ML UDC PO SCH (09:31)
[2020-07-30] MEDS: MULTIVITS,CA,MINERALS/IRON/FA 1 TABLET GT SCH (09:32)
[2020-07-30] MEDS: METOPROLOL TARTRATE 50 MG TABLET PO SCH ×2 (09:33→20:45)
[2020-07-30] MEDS: CHOLECALCIFEROL (VITAMIN D3) 2,000 UNIT TABLET PO SCH (09:33)
[2020-07-30] MEDS: PANTOPRAZOLE SODIUM 40 MG TAB PO SCH (09:34)
[2020-07-30] MEDS: amLODIPine BESYLATE 5 MG TABLET PO SCH (09:34)
[2020-07-30] MEDS: POTASSIUM CHLORIDE 20 MEQ TAB.PRT.SR PO SCH (09:35)
[2020-07-30 14:17] LABS: BILIRUBIN,URINE NEGATIVE (NEGATIVE); BLOOD, URINE NEGATIVE (NEGATIVE); CLARITY/URINE CLEAR (CLEAR); COLOR,URINE YELLOW (YELLOW); GLUCOSE,URINE 1+ (NEGATIVE); KETONES,URINE NEGATIVE (NEGATIVE); LEUKOCYTE ESTERASE ,URINE NEGATIVE (NEGATIVE); NITRITE, URINE NEGATIVE (NEGATIVE); PROTEIN URINE NEGATIVE (NEGATIVE); UROBILINOGEN,URINE 0.2 (0.2-1.0)
[2020-07-30] MEDS: LR 1,000 ML IV SCH ×2 (17:46→20:44)
[2020-07-31 00:30] VITALS: BP_SYST 120
[2020-07-31] MEDS: LR 1,000 ML IV SCH ×2 (05:53→17:30)
[2020-07-31 06:36] LABS: BASOPHILS # (AUTO) 0.1 K/uL (0.0-0.2); BASOPHILS % (AUTO) 0.4 % (0.0-2.0); EOSINOPHILS # (AUTO) 0.4 K/uL (0.0-0.4); EOSINOPHILS % (AUTO) 2.8 % (0.0-4.0); HEMATOCRIT 31.6 % (36-48); HEMOGLOBIN 10.5 g/dL (12.0-16.0); LYMPHOCYTES # (AUTO) 1.7 K/uL (1.0-5.5); LYMPHOCYTES % (AUTO) 13.2 % (20.5-51.5); MEAN CORPUSCULAR HEMOGLOBIN 31 pg (27-31); MEAN CORPUSCULAR HGB CONC 33 % (32-36); MEAN CORPUSCULAR VOLUME 94 fL (79.0-98.0); MONOCYTES % (AUTO) 7.7 % (1.7-9.3); NEUTROPHILS # (AUTO) 9.6 K/uL (1.8-7.7); NEUTROPHILS % (AUTO) 75.9 % (40.0-70.0); PLATELET COUNT (AUTO) 147 K/uL (130-430); RED BLOOD CELL COUNT(AUTO) 3.38 MIL/uL (4.2-6.2); WHITE BLOOD COUNT (AUTO) 12.6 K/uL (4.8-10.8)
[2020-07-31 07:23] LABS: ANION GAP 7 (5-15); CALCIUM 8.3 mg/dL (8.4-11.0); CHLORIDE 105 mmol/L (98-107); CREATININE 0.53 mg/dL (0.55-1.30); GLUCOSE 136 mg/dL (70-99); POTASSIUM 3.6 mmol/L (3.5-5.1); SODIUM SERUM 139 mmol/L (136-145); UREA NITROGEN, BLOOD 28 mg/dL (8-21)
[2020-07-31 08:20] VITALS: BP_SYST 131
[2020-07-31] MEDS: MULTIVITS,CA,MINERALS/IRON/FA 1 TABLET GT SCH (09:03)
[2020-07-31] MEDS: amLODIPine BESYLATE 5 MG TABLET PO SCH (09:03)
[2020-07-31] MEDS: CHOLECALCIFEROL (VITAMIN D3) 2,000 UNIT TABLET PO SCH (09:03)
[2020-07-31] MEDS: PANTOPRAZOLE SODIUM 40 MG TAB PO SCH (09:04)
[2020-07-31] MEDS: METOPROLOL TARTRATE 50 MG TABLET PO SCH ×2 (09:04→20:27)
[2020-07-31] MEDS: POTASSIUM CHLORIDE 20 MEQ TAB.PRT.SR PO SCH (09:04)
[2020-07-31] MEDS: MEGESTROL ACETATE 400 MG/10 ML UDC PO SCH (09:05)
[2020-07-31] MEDS: cefTRIAXone 1 GM in D5W 50 ML IV SCH (12:10)
[2020-07-31 12:35] VITALS: BP_SYST 130
[2020-07-31 16:57] VITALS: BP_SYST 127
[2020-07-31] MEDS ORDERED: ACETAMINOPHEN 325 MG TABLET PO PRN (17:45)
[2020-07-31] MEDS ORDERED: ACET325T53 PO (18:05)
[2020-07-31 20:00] VITALS: BP_SYST 126
[2020-08-01 00:30] VITALS: BP_SYST 118
[2020-08-01] MEDS: LR 1,000 ML IV SCH ×2 (02:59→14:04)
[2020-08-01 03:31] LABS: BILIRUBIN,URINE NEGATIVE (NEGATIVE); BLOOD, URINE 2+ (NEGATIVE); CLARITY/URINE CLEAR (CLEAR); COLOR,URINE YELLOW (YELLOW); GLUCOSE,URINE NEGATIVE (NEGATIVE); KETONES,URINE NEGATIVE (NEGATIVE); LEUKOCYTE ESTERASE ,URINE 2+ (NEGATIVE); NITRITE, URINE NEGATIVE (NEGATIVE); PROTEIN URINE NEGATIVE (NEGATIVE); UROBILINOGEN,URINE 0.2 (0.2-1.0)
[2020-08-01 03:37] LABS: RBC,URINE 20-50 /HPF (0-3); WBC,URINE 20-50 /HPF (0-3)
[2020-08-01 03:38] LABS: BACTERIA,URINE MODERATE /HPF (None Seen); YEAST,URINE Many /HPF (None Seen)
[2020-08-01] MEDS ORDERED: FLUCONAZOLE 100 MG TABLET (DIFLUCAN) PO ONE (07:45)
[2020-08-01 07:55] VITALS: BP_SYST 117
[2020-08-01] MEDS: POTASSIUM CHLORIDE 20 MEQ TAB.PRT.SR PO SCH (09:06)
[2020-08-01] MEDS: amLODIPine BESYLATE 5 MG TABLET PO SCH (09:07)
[2020-08-01] MEDS: METOPROLOL TARTRATE 50 MG TABLET PO SCH ×2 (09:07→22:15)
[2020-08-01] MEDS: MULTIVITS,CA,MINERALS/IRON/FA 1 TABLET GT SCH (09:07)
[2020-08-01 10:42] LABS: BASOPHILS # (AUTO) 0.1 K/uL (0.0-0.2); BASOPHILS % (AUTO) 0.5 % (0.0-2.0); EOSINOPHILS # (AUTO) 0.3 K/uL (0.0-0.4); EOSINOPHILS % (AUTO) 2.4 % (0.0-4.0); HEMATOCRIT 30.9 % (36-48); HEMOGLOBIN 10.1 g/dL (12.0-16.0); LYMPHOCYTES # (AUTO) 1.3 K/uL (1.0-5.5); LYMPHOCYTES % (AUTO) 10.5 % (20.5-51.5); MEAN CORPUSCULAR HEMOGLOBIN 31 pg (27-31); MEAN CORPUSCULAR HGB CONC 33 % (32-36); MEAN CORPUSCULAR VOLUME 94 fL (79.0-98.0); MONOCYTES # (AUTO) 0.9 K/uL (0.0-1.0); MONOCYTES % (AUTO) 7.4 % (1.7-9.3); NEUTROPHILS # (AUTO) 9.9 K/uL (1.8-7.7); NEUTROPHILS % (AUTO) 79.2 % (40.0-70.0); PLATELET COUNT (AUTO) 130 K/uL (130-430); RED BLOOD CELL COUNT(AUTO) 3.27 MIL/uL (4.2-6.2); RED CELL DISTRIBUTION WIDTH 12.6 % (9.0-15.0); WHITE BLOOD COUNT (AUTO) 12.5 K/uL (4.8-10.8)
[2020-08-01 10:58] LABS: ANION GAP 6 (5-15); CALCIUM 8.4 mg/dL (8.4-11.0); CHLORIDE 101 mmol/L (98-107); CREATININE 0.95 mg/dL (0.55-1.30); GLUCOSE 262 mg/dL (70-99); POTASSIUM 4.5 mmol/L (3.5-5.1); SODIUM SERUM 131 mmol/L (136-145); UREA NITROGEN, BLOOD 34 mg/dL (8-21)
[2020-08-01 11:04] LABS: ALANINE AMINOTRANSFERASE 15 U/L (12-78); ALBUMIN 2.3 g/dL (3.4-4.8); ASPARTATE AMINOTRANSFERASE 22 U/L (10-37); TOTAL BILIRUBIN 0.3 mg/dL (0.0-1.0)
[2020-08-01] MEDS: cefTRIAXone 1 GM in D5W 50 ML IV SCH (11:25)
[2020-08-01 12:09] VITALS: BP_SYST 121
[2020-08-01] MEDS ORDERED: BISACODYL 5 MG TABLET.DR (DULCOLAX) PO ONE (14:00)
[2020-08-01] MEDS ORDERED: MINERAL OIL 133 ML ENEMA RC ONE ×2 (14:00)
[2020-08-01] MEDS ORDERED: LACTULOSE 20 GM/30 ML UDC PO ONE (14:00)
[2020-08-01] MEDS ORDERED: DEXTROSE 50% JECT 50 ML DISP.SYRIN IVP PRN (14:15)
[2020-08-01 15:05] LABS: BILIRUBIN,URINE NEGATIVE (NEGATIVE); COLOR,URINE YELLOW (YELLOW); GLUCOSE,URINE NEGATIVE (NEGATIVE); KETONES,URINE NEGATIVE (NEGATIVE); LEUKOCYTE ESTERASE ,URINE NEGATIVE (NEGATIVE); NITRITE, URINE NEGATIVE (NEGATIVE); PROTEIN URINE NEGATIVE (NEGATIVE); UROBILINOGEN,URINE 0.2 (0.2-1.0)
[2020-08-01 15:18] LABS: BLOOD, URINE TRACE (NEGATIVE); CLARITY/URINE HAZY (CLEAR)
[2020-08-01 15:19] LABS: RBC,URINE 0-3 /HPF (0-3)
[2020-08-01 15:20] LABS: BACTERIA,URINE FEW /HPF (None Seen); MUCUS,URINE None Seen /LPF (None Seen); YEAST,URINE Many /HPF (None Seen)
[2020-08-01 15:58] VITALS: BP_SYST 123
[2020-08-01 21:00] VITALS: BP_SYST 127
[2020-08-01] MEDS: INSULIN REGULAR, HUMAN 100 UNITS/ML, 10 ML VIAL (humuLIN R) SUBCUT PRN (22:19)
[2020-08-02] VITALS: BP_SYST 136
[2020-08-02] MEDS: LR 1,000 ML IV SCH (02:31)
[2020-08-02] MEDS: POTASSIUM CHLORIDE 20 MEQ TAB.PRT.SR PO SCH (09:03)
[2020-08-02] MEDS: MULTIVITS,CA,MINERALS/IRON/FA 1 TABLET GT SCH (09:03)
[2020-08-02] MEDS: FLUCONAZOLE 100 MG TABLET (DIFLUCAN) PO SCH (09:03)
[2020-08-02] MEDS: METOPROLOL TARTRATE 50 MG TABLET PO SCH ×2 (09:04→20:54)
[2020-08-02] MEDS: amLODIPine BESYLATE 5 MG TABLET PO SCH (09:04)
[2020-08-02] MEDS: cefTRIAXone 1 GM in D5W 50 ML IV SCH (11:16)
[2020-08-02 12:00] VITALS: BP_SYST 130
[2020-08-02 13:15] VITALS: BP_SYST 130
[2020-08-02 16:00] VITALS: BP_SYST 137
[2020-08-02 20:00] VITALS: BP_SYST 127
[2020-08-03] VITALS (9 sets, daily range): BP systolic 106–134
[2020-08-03] MEDS: LR 1,000 ML IV SCH (00:53)
[2020-08-03 07:31] LABS: BASOPHILS # (AUTO) 0.1 K/uL (0.0-0.2); BASOPHILS % (AUTO) 0.5 % (0.0-2.0); EOSINOPHILS # (AUTO) 0.3 K/uL (0.0-0.4); EOSINOPHILS % (AUTO) 2.9 % (0.0-4.0); HEMATOCRIT 29.3 % (36-48); LYMPHOCYTES # (AUTO) 1.7 K/uL (1.0-5.5); LYMPHOCYTES % (AUTO) 15.4 % (20.5-51.5); MEAN CORPUSCULAR HEMOGLOBIN 32 pg (27-31); MEAN CORPUSCULAR HGB CONC 34 % (32-36); MEAN CORPUSCULAR VOLUME 93 fL (79.0-98.0); MONOCYTES # (AUTO) 0.8 K/uL (0.0-1.0); MONOCYTES % (AUTO) 7.8 % (1.7-9.3); NEUTROPHILS % (AUTO) 73.4 % (40.0-70.0); PLATELET COUNT (AUTO) 195 K/uL (130-430); RED BLOOD CELL COUNT(AUTO) 3.14 MIL/uL (4.2-6.2); RED CELL DISTRIBUTION WIDTH 12.8 % (9.0-15.0); WHITE BLOOD COUNT (AUTO) 10.9 K/uL (4.8-10.8)
[2020-08-03 07:47] LABS: ALANINE AMINOTRANSFERASE 21 U/L (12-78); ALBUMIN 2.3 g/dL (3.4-4.8); ANION GAP 8 (5-15); ASPARTATE AMINOTRANSFERASE 17 U/L (10-37); CALCIUM 8.1 mg/dL (8.4-11.0); CHLORIDE 105 mmol/L (98-107); CREATININE 0.39 mg/dL (0.55-1.30); GLUCOSE 116 mg/dL (70-99); POTASSIUM 3.3 mmol/L (3.5-5.1); SODIUM SERUM 137 mmol/L (136-145); TOTAL BILIRUBIN 0.3 mg/dL (0.0-1.0); UREA NITROGEN, BLOOD 7 mg/dL (8-21)
[2020-08-03] MEDS: MULTIVITS,CA,MINERALS/IRON/FA 1 TABLET GT SCH (08:21)
[2020-08-03] MEDS: POTASSIUM CHLORIDE 20 MEQ TAB.PRT.SR PO SCH ×2 (08:21→20:19)
[2020-08-03] MEDS: amLODIPine BESYLATE 5 MG TABLET PO SCH (08:22)
[2020-08-03] MEDS: METOPROLOL TARTRATE 50 MG TABLET PO SCH ×2 (08:22→20:19)
[2020-08-03] MEDS: FLUCONAZOLE 100 MG TABLET (DIFLUCAN) PO SCH (08:22)
[2020-08-03] MEDS: cefTRIAXone 1 GM in D5W 50 ML IV SCH (11:09)
[2020-08-03] MEDS ORDERED: CYANOCOBALAMIN 1000 mCg TABLET PO ONE (17:30)
[2020-08-04] VITALS: BP_SYST 119
[2020-08-04 06:41] LABS: BASOPHILS # (AUTO) 0.1 K/uL (0.0-0.2); BASOPHILS % (AUTO) 0.7 % (0.0-2.0); EOSINOPHILS # (AUTO) 0.3 K/uL (0.0-0.4); EOSINOPHILS % (AUTO) 3.1 % (0.0-4.0); HEMATOCRIT 30.4 % (36-48); HEMOGLOBIN 10.4 g/dL (12.0-16.0); LYMPHOCYTES # (AUTO) 1.7 K/uL (1.0-5.5); LYMPHOCYTES % (AUTO) 15.6 % (20.5-51.5); MEAN CORPUSCULAR HEMOGLOBIN 31 pg (27-31); MEAN CORPUSCULAR HGB CONC 34 % (32-36); MEAN CORPUSCULAR VOLUME 92 fL (79.0-98.0); MONOCYTES # (AUTO) 0.9 K/uL (0.0-1.0); MONOCYTES % (AUTO) 8.6 % (1.7-9.3); NEUTROPHILS # (AUTO) 7.6 K/uL (1.8-7.7); PLATELET COUNT (AUTO) 252 K/uL (130-430); RED CELL DISTRIBUTION WIDTH 12.8 % (9.0-15.0); WHITE BLOOD COUNT (AUTO) 10.6 K/uL (4.8-10.8)
[2020-08-04 07:19] LABS: ANION GAP 10 (5-15); CALCIUM 8.4 mg/dL (8.4-11.0); CHLORIDE 104 mmol/L (98-107); CREATININE 0.38 mg/dL (0.55-1.30); GLUCOSE 115 mg/dL (70-99); POTASSIUM 3.7 mmol/L (3.5-5.1); SODIUM SERUM 137 mmol/L (136-145); UREA NITROGEN, BLOOD 11 mg/dL (8-21)
[2020-08-04 08:00] VITALS: BP_SYST 127
[2020-08-04] MEDS: MULTIVITS,CA,MINERALS/IRON/FA 1 TABLET GT SCH ×2 (09:22→09:27)
[2020-08-04] MEDS: amLODIPine BESYLATE 5 MG TABLET PO SCH (09:26)
[2020-08-04] MEDS: METOPROLOL TARTRATE 50 MG TABLET PO SCH ×2 (09:26→21:16)
[2020-08-04] MEDS: CYANOCOBALAMIN 1000 mCg TABLET PO SCH (09:27)
[2020-08-04] MEDS: POTASSIUM CHLORIDE 20 MEQ TAB.PRT.SR PO SCH ×2 (09:27→21:15)
[2020-08-04] MEDS: FLUCONAZOLE 100 MG TABLET (DIFLUCAN) PO SCH (09:27)
[2020-08-04] MEDS: cefTRIAXone 1 GM in D5W 50 ML IV SCH (10:55)
[2020-08-04] MEDS: INSULIN REGULAR, HUMAN 100 UNITS/ML, 10 ML VIAL (humuLIN R) SUBCUT PRN (11:05)
[2020-08-04 11:42] VITALS: BP_SYST 134
[2020-08-04 16:10] VITALS: BP_SYST 141
[2020-08-04 20:00] VITALS: BP_SYST 123
[2020-08-05] VITALS (7 sets, daily range): BP systolic 124–167
[2020-08-05 03:05] LABS: BILIRUBIN,URINE NEGATIVE (NEGATIVE); BLOOD, URINE 1+ (NEGATIVE); CLARITY/URINE CLEAR (CLEAR); COLOR,URINE YELLOW (YELLOW); GLUCOSE,URINE TRACE (NEGATIVE); KETONES,URINE NEGATIVE (NEGATIVE); LEUKOCYTE ESTERASE ,URINE 1+ (NEGATIVE); NITRITE, URINE NEGATIVE (NEGATIVE); PROTEIN URINE NEGATIVE (NEGATIVE); UROBILINOGEN,URINE 0.2 (0.2-1.0)
[2020-08-05 03:23] LABS: BACTERIA,URINE FEW /HPF (None Seen)
[2020-08-05] MEDS: MULTIVITS,CA,MINERALS/IRON/FA 1 TABLET GT SCH (08:50)
[2020-08-05] MEDS: FLUCONAZOLE 100 MG TABLET (DIFLUCAN) PO SCH (08:51)
[2020-08-05] MEDS: POTASSIUM CHLORIDE 20 MEQ TAB.PRT.SR PO SCH ×2 (08:51→21:17)
[2020-08-05] MEDS: amLODIPine BESYLATE 5 MG TABLET PO SCH (08:51)
[2020-08-05] MEDS: CYANOCOBALAMIN 1000 mCg TABLET PO SCH (08:52)
[2020-08-05] MEDS: METOPROLOL TARTRATE 50 MG TABLET PO SCH ×2 (08:52→21:17)
[2020-08-05] MEDS: cefTRIAXone 1 GM in D5W 50 ML IV SCH (11:28)
[2020-08-06 03:46] VITALS: BP_SYST 118
[2020-08-06 07:09] LABS: BASOPHILS # (AUTO) 0.1 K/uL (0.0-0.2); BASOPHILS % (AUTO) 0.8 % (0.0-2.0); EOSINOPHILS # (AUTO) 0.1 K/uL (0.0-0.4); EOSINOPHILS % (AUTO) 1.2 % (0.0-4.0); HEMATOCRIT 31.4 % (36-48); HEMOGLOBIN 10.6 g/dL (12.0-16.0); LYMPHOCYTES # (AUTO) 1.3 K/uL (1.0-5.5); LYMPHOCYTES % (AUTO) 11.7 % (20.5-51.5); MEAN CORPUSCULAR HEMOGLOBIN 31 pg (27-31); MEAN CORPUSCULAR HGB CONC 34 % (32-36); MEAN CORPUSCULAR VOLUME 92 fL (79.0-98.0); MONOCYTES % (AUTO) 9.1 % (1.7-9.3); NEUTROPHILS # (AUTO) 8.6 K/uL (1.8-7.7); NEUTROPHILS % (AUTO) 77.2 % (40.0-70.0); PLATELET COUNT (AUTO) 352 K/uL (130-430); RED BLOOD CELL COUNT(AUTO) 3.42 MIL/uL (4.2-6.2); RED CELL DISTRIBUTION WIDTH 12.6 % (9.0-15.0); WHITE BLOOD COUNT (AUTO) 11.1 K/uL (4.8-10.8)
[2020-08-06 07:24] LABS: ANION GAP 11 (5-15); CALCIUM 8.5 mg/dL (8.4-11.0); CHLORIDE 103 mmol/L (98-107); CREATININE 0.49 mg/dL (0.55-1.30); GLUCOSE 140 mg/dL (70-99); POTASSIUM 3.8 mmol/L (3.5-5.1); SODIUM SERUM 134 mmol/L (136-145); UREA NITROGEN, BLOOD 15 mg/dL (8-21)
[2020-08-06 08:00] VITALS: BP_SYST 126
[2020-08-06] MEDS: MULTIVITS,CA,MINERALS/IRON/FA 1 TABLET GT SCH (09:58)
[2020-08-06] MEDS: POTASSIUM CHLORIDE 20 MEQ TAB.PRT.SR PO SCH (09:58)
[2020-08-06] MEDS: METOPROLOL TARTRATE 50 MG TABLET PO SCH (10:06)
[2020-08-06] MEDS: amLODIPine BESYLATE 5 MG TABLET PO SCH (10:06)
[2020-08-06] MEDS: cefTRIAXone 1 GM in D5W 50 ML IV SCH (11:45)
[2020-08-06] MEDS: FLUCONAZOLE 100 MG TABLET (DIFLUCAN) PO SCH (12:14)
[2020-08-06 12:33] VITALS: BP_SYST 126
[2020-08-06] MEDS ORDERED: BISACODYL 10 MG/SUPPOSITORY RC ONE (14:45)
[2020-08-06] MEDS ORDERED: DIF100 PO (15:19)
[2020-08-06 15:55] VITALS: BP_SYST 135
[2020-08-06 16:00] VITALS: BP_SYST 135
[2020-08-07 14:06] LABS: CHLAMYDIA TRACHOMATIS NAA Negative (Negative); NEISSERIA GONORRHOEAE NAA Negative (Negative)
[2020-08-08 18:10] LABS: FTA-Ab (T PALLIDUM) Non Reactive (Non Reactive)
== END 2020-08-06 16:30 | disposition home health service (06) | DRG 917 ==
LOC: SED 18:40 → SIC 21:10 → STU 07-22 18:48 → SMU 07-26 10:32
PROVIDERS: ADMIT Internal Medicine; ATTEND Internal Medicine
PROC: 0BH17EZ Insertion of Endotracheal Airway into Trachea, Via Natural or Artificial Opening (ICD-10-PCS; principal; 2020-07-18)
PROC: 5A1945Z Respiratory Ventilation, 24-96 Consecutive Hours (ICD-10-PCS; 2020-07-18)
DX: T39.391A Poisoning by other nonsteroidal anti-inflammatory drugs [NSAID], accidental (unintentional), initial encounter (principal); A41.9 Sepsis, unspecified organism; E43 Unspecified severe protein-calorie malnutrition; J96.21 Acute and chronic respiratory failure with hypoxia; J96.22 Acute and chronic respiratory failure with hypercapnia; G92 Toxic encephalopathy; B37.49 Other urogenital candidiasis; G93.1 Anoxic brain damage, not elsewhere classified; I67.4 Hypertensive encephalopathy; J44.1 Chronic obstructive pulmonary disease with (acute) exacerbation; N13.30 Unspecified hydronephrosis; Z68.1 Body mass index [BMI] 19.9 or less, adult; T42.8X1A Poisoning by antiparkinsonism drugs and other central muscle-tone depressants, accidental (unintentional), initial encounter; D64.9 Anemia, unspecified; E78.5 Hyperlipidemia, unspecified; E87.6 Hypokalemia; E83.39 Other disorders of phosphorus metabolism; F03.90 Unspecified dementia, unspecified severity, without behavioral disturbance, psychotic disturbance, mood disturbance, and anxiety; Z20.828 Contact with and (suspected) exposure to other viral communicable diseases; F32.9 Major depressive disorder, single episode, unspecified; Z96.651 Presence of right artificial knee joint; R00.1 Bradycardia, unspecified; K57.90 Diverticulosis of intestine, part unspecified, without perforation or abscess without bleeding; F12.90 Cannabis use, unspecified, uncomplicated; K59.00 Constipation, unspecified; R33.8 Other retention of urine; M47.816 Spondylosis without myelopathy or radiculopathy, lumbar region; M41.9 Scoliosis, unspecified; N76.0 Acute vaginitis; F41.9 Anxiety disorder, unspecified; I10 Essential (primary) hypertension; M19.90 Unspecified osteoarthritis, unspecified site; Z79.899 Other long term (current) drug therapy; Z91.5 Personal history of self-harm; Z98.891 History of uterine scar from previous surgery; Y92.89 Other specified places as the place of occurrence of the external cause
CPT/HCPCS: 36415; 36600; 70450-TC; 70551; 71045; 72131; 80048; 80053; 80061; 80307; 81000-TC; 81003; 82140-TC; 82607; 82803-TC; 82962; 83605; 83690-TC; 83735-TC; 83880; 84100-TC; 84443-TC; 84484; 85025; 85610-TC; 85730-TC; 86592; 86780; 87040-TC; 87070-TC; 87081; 87086; 87205-TC; 87491; 87591; 92610-GN; 93005; 93306; 94003; 94640; 95816; 96361; 96365; 97110-GP; 97112-GP; 97116-GP; 97530-GP; 99291; C9113; G0378; G0480; G0481; G0482; J0330; J0360; J0696; J1644; J1815; J2250; J2270; J2543; J2704; J3480; J3490; J7030; J7042; J7050; J7060; J7120